=== PATIENT | male | born 1980 | race Two or more races ===

== ENCOUNTER 2018-09-05 10:24 | Emergency (ER) | payer OTHER ==
[~2018-09-05] VITALS: Ht 165.1 cm; Wt 82.7 kg
[2018-09-05 10:52] VITALS: BP 155/111
--- NOTE | 2018-09-05 11:18 | NUR ---
CALLED FOR ROOM. NO ANSWER. PT HAS X-RAYS ORDERED.
--- NOTE | 2018-09-05 11:27 | NUR ---
PT AMBULATORY TO ED ROOM 19 FROM [facility] IN [facility] AT THIS TIME
[2018-09-05] MEDS ORDERED: MAALOX/HYOSCYAMINE/LIDOCAINE 45 ML BTL ONE (11:48)
[2018-09-05] MEDS ORDERED: MAALOX/HYOSCYAMINE/LIDOCAINE 45 ML BTL PO ONE (12:00)
--- NOTE | 2018-09-05 12:55 | NUR ---
PT AMBULATORY, NO RESPIRATORY S/S UPON DISCHARGE.
== END 2018-09-05 12:56 | disposition home or self-care (01) ==
LOC: ED 12:10
DX: T18.198A Other foreign object in esophagus causing other injury, initial encounter (principal); X58.XXXA Exposure to other specified factors, initial encounter; Y93.89 Activity, other specified; Y92.89 Other specified places as the place of occurrence of the external cause; Y99.8 Other external cause status
CPT/HCPCS: 70360; 71046; 99283